=== PATIENT | male | born 1975 | race Two or more races ===

== ENCOUNTER → 2020-11-21 11:10 | Emergency (ER) | payer SELFPAY ==
[~2020-11-21] VITALS: Ht 185.4 cm; Wt 113.4 kg
[~2020-11-21 11:10] MED LIST: cefTRIAXone SOD 1,000 MG VL IM ONE
[2020-11-21 14:01] VITALS: BP 118/67
== END | disposition home or self-care (01) ==
LOC: ER 11:10
DX: J18.9 Pneumonia, unspecified organism (principal); Z20.828 Contact with and (suspected) exposure to other viral communicable diseases
CPT/HCPCS: 36415; 71045; 87426; 96372; 99284; J0696

== ENCOUNTER 2023-04-22 07:49 | Inpatient (IN) | payer MEDICAID, OTHER ==
[~2023-04-22] VITALS: Ht 185.4 cm; Wt 130.0 kg
[2023-04-22] MEDS ORDERED: KETOROLAC TROMETH 30 MG/ML 1ML VIAL IV ONE (08:45)
[2023-04-22] MEDS ORDERED: CEFTRIAXONE SODIUM 2 GM in D5W 5% 100 ML IV ONE (08:45)
[2023-04-22] MEDS ORDERED: CLINDAMYCIN 600MG IV 50 ML IV ONE (08:45)
[2023-04-22 09:48] LABS: Basophils # (auto) 0.1 10 ^3/uL (0-0.2); Basophils % (auto) 0.6 % (0.0-2.0); Eosinophils # (auto) 0.2 10 ^3/uL (0-0.8); Eosinophils % (auto) 1.3 % (0.0-7.0); Hematocrit 37.7 % (41.0-53.0); Hemoglobin 12.7 g/dL (13.5-17.5); Lymphocytes # (auto) 1.5 10 ^3/uL (0.4-5.4); Lymphocytes % (auto) 11.9 % (10.0-50.0); Mean Corpuscular Hemoglobin 28.2 pg (28.0-32.0); Mean Corpuscular Hgb Conc. 33.5 g/dL (32.0-36.0); Mean Corpuscular Volume 84.2 fL (80.0-100.0); Monocytes # (auto) 1.2 10 ^3/uL (0-1.3); Monocytes % (auto) 9.4 % (0.0-12.0); Neutrophils # (auto) 9.6 10 ^3/uL (1.6-8.6); Neutrophils % (auto) 76.8 % (37.0-80.0); Red Blood Cells 4.48 10^6/uL (4.5-5.90); Red Cell Distribution Width 14.1 % (11.8-14.3); White Blood Cell 12.4 10^3/uL (4.4-10.8)
[2023-04-22 09:57] LABS: Urine Bacteria NONE SEEN /hpf (None Seen); Urine Blood 2+ /uL (Negative); Urine Mucus FEW (None Seen); Urine Specific Gravity 1.024 (1.001-1.035); Urine WBC 1 /hpf (0 - 3)
[2023-04-22 10:19] LABS: Albumin 3.1 g/dL (3.4-5.0); Calcium 8.1 mg/dL (8.5-10.1); Potassium 3.9 mmol/L (3.5-5.1)
[2023-04-22 10:23] LABS: Alcohol, Urine < 3.0 mg/dL (0-10); Amphetamine Screen, Urine POSITIVE (NEGATIVE); Barbiturate Scree,Urine NEGATIVE (NEGATIVE); Benzodiazephine Screen, Urine NEGATIVE (NEGATIVE); Cannabinoid Screen, Urine NEGATIVE (NEGATIVE); Cocaine Screen, Urine NEGATIVE (NEGATIVE)
[2023-04-22 10:23] LABS: BUN/Creatinine Ratio 11.8 (10.0-20.0); Bilirubin, Total 1.2 mg/dL (0.2-1.0); Total Protein 6.5 g/dL (6.4-8.2)
[2023-04-22] MEDS ORDERED: ONDANSETRON HCL 4 MG/2 ML VIAL IV ONE (10:30)
[2023-04-22] MEDS ORDERED: MORPHINE SULFATE 4 MG/ML SYR/VIAL IV ONE ×2 (10:30→12:15)
[2023-04-22 10:42] LABS: Opiate Scree,Urine NEGATIVE (NEGATIVE); Phencyclidine Screen, Urine NEGATIVE (NEGATIVE)
[2023-04-22] MEDS: CLINDAMYCIN 300MG IV 50 ML IV SCH ×2 (10:44→10:56)
[2023-04-22] MEDS: SODIUM CHLORIDE 0.9% 1,000 ML IV SCH ×2 (14:29→22:19)
[2023-04-22] MEDS: metroNIDAZOLE 500MG/100ML 100 ML IV SCH ×2 (14:39→22:14)
[2023-04-22 14:55] LABS: INR 1.03 (0.9-1.15)
[2023-04-22] MEDS: MORPHINE SULFATE 4 MG/ML SYR/VIAL IV PRN (16:46)
[2023-04-22] MEDS: ACETAMINOPHEN 325 MG TAB PO PRN (20:43)
[2023-04-22] MEDS: ONDANSETRON HCL 4 MG/2 ML VIAL IV PRN (20:44)
[2023-04-23 06:33] LABS: Basophils # (auto) 0.1 10 ^3/uL (0-0.2); Basophils % (auto) 0.4 % (0.0-2.0); Eosinophils # (auto) 0.2 10 ^3/uL (0-0.8); Eosinophils % (auto) 1.7 % (0.0-7.0); Hematocrit 35.8 % (41.0-53.0); Hemoglobin 12.3 g/dL (13.5-17.5); Lymphocytes # (auto) 1.2 10 ^3/uL (0.4-5.4); Lymphocytes % (auto) 9.7 % (10.0-50.0); Mean Corpuscular Hemoglobin 29.1 pg (28.0-32.0); Mean Corpuscular Hgb Conc. 34.4 g/dL (32.0-36.0); Mean Corpuscular Volume 84.5 fL (80.0-100.0); Monocytes # (auto) 1.3 10 ^3/uL (0-1.3); Monocytes % (auto) 10.5 % (0.0-12.0); Neutrophils # (auto) 9.9 10 ^3/uL (1.6-8.6); Neutrophils % (auto) 77.7 % (37.0-80.0); Red Blood Cells 4.24 10^6/uL (4.5-5.90); White Blood Cell 12.7 10^3/uL (4.4-10.8)
[2023-04-23] MEDS: SODIUM CHLORIDE 0.9% 1,000 ML IV SCH ×3 (06:39→23:00)
[2023-04-23] MEDS: metroNIDAZOLE 500MG/100ML 100 ML IV SCH ×3 (06:39→22:04)
[2023-04-23 06:45] LABS: Calcium 7.9 mg/dL (8.5-10.1); Potassium 4.3 mmol/L (3.5-5.1)
[2023-04-23 06:52] LABS: Albumin 2.7 g/dL (3.4-5.0); BUN/Creatinine Ratio 8.9 (10.0-20.0); Bilirubin, Total 0.9 mg/dL (0.2-1.0); Total Protein 6.6 g/dL (6.4-8.2)
[2023-04-23] MEDS: cefTRIAXone 1GM/50ML D5W 50 ML IV SCH (09:00)
[2023-04-23] MEDS ORDERED: OXYCODONE W/ ACETAMINOPHEN 5/325MG TABLET PO ONE (09:45)
[2023-04-23] MEDS: ONDANSETRON HCL 4 MG/2 ML VIAL IV PRN ×3 (14:22→23:04)
[2023-04-23] MEDS: MORPHINE SULFATE 4 MG/ML SYR/VIAL IV PRN ×3 (14:22→22:57)
[2023-04-23 22:00] VITALS: BP 130/69
[2023-04-23] MEDS: ACETAMINOPHEN 325 MG TAB PO PRN (23:03)
[2023-04-24 05:00] VITALS: BP 113/50
[2023-04-24] MEDS: metroNIDAZOLE 500MG/100ML 100 ML IV SCH (05:23)
[2023-04-24] MEDS: SODIUM CHLORIDE 0.9% 1,000 ML IV SCH ×3 (05:23→23:50)
[2023-04-24 07:55] VITALS: BP 111/48
[2023-04-24] MEDS ORDERED: FAMOTIDINE (10MG/ML) 2ML VL IV ONE (07:58)
[2023-04-24] MEDS ORDERED: ONDANSETRON HCL 4 MG/2 ML VIAL ONE (07:59)
[2023-04-24] MEDS ORDERED: HYDROmorphone HCL 2 MG/ML VL/or syr ONE (07:59)
[2023-04-24] MEDS ORDERED: MIDAZOLAM HCL 2MG/2ML 2ml VIAL (1mg/ml) ONE (08:00)
[2023-04-24] MEDS ORDERED: DexAMETHasone SOD PHOS 10MG/1ML VIAL INJ ONE (08:00)
[2023-04-24] MEDS ORDERED: PROPOFOL 10 MG/ML 20 ML IV ONE (08:00)
[2023-04-24] MEDS ORDERED: fentaNYL CITRATE 100 MCG/2 ML VL ONE (08:00)
[2023-04-24] MEDS ORDERED: LIDOCAINE 2% (LOCAL ANESTH.) PF 5ml SDV ONE (08:00)
[2023-04-24] MEDS ORDERED: KETOROLAC TROMETH 30 MG/ML 1ML VIAL ONE (08:00)
[2023-04-24] MEDS ORDERED: GLYCOPYRROLATE 0.2 MG/ML 1ML VIAL ONE (08:00)
[2023-04-24] MEDS: cefTRIAXone 1GM/50ML D5W 50 ML IV SCH (08:13)
[2023-04-24 08:21] LABS: INR 1.08 (0.9-1.15); Partial Thromboplastin Time 29.5 sec (24.6-33.4)
[2023-04-24] MEDS ORDERED: ePHEDrine SULFATE 50 MG/ML AMP ONE (08:42)
[2023-04-24] MEDS ORDERED: ceFAZolin 1GM VL ONE (08:46)
[2023-04-24] MEDS ORDERED: HYDROmorphone HCL 2 MG/ML VL/or syr IV PRN (09:30)
[2023-04-24] MEDS ORDERED: ONDANSETRON HCL 4 MG/2 ML VIAL IV PRN (09:30)
[2023-04-24] MEDS ORDERED: VANCOMYCIN PER PHARMACY 0 MG IV SCH (10:00)
[2023-04-24] MEDS ORDERED: VANCOMYCIN 1GM/250ML 250 ML IV ONE (10:15)
[2023-04-24 12:00] VITALS: BP 105/52
[2023-04-24 16:00] VITALS: BP 109/60
[2023-04-24] MEDS: VANCOMYCIN 1GM/250ML 250 ML IV SCH (20:39)
[2023-04-24 22:00] VITALS: BP 119/63
[2023-04-24] MEDS: PIPERACILLIN-TAZOB 3.375GM 100 ML IV SCH (22:08)
[2023-04-25] MEDS: VANCOMYCIN 1GM/250ML 250 ML IV SCH ×3 (04:08→20:00)
[2023-04-25 05:00] VITALS: BP 123/54
[2023-04-25] MEDS: PIPERACILLIN-TAZOB 3.375GM 100 ML IV SCH ×3 (05:26→23:16)
[2023-04-25 06:05] LABS: BUN/Creatinine Ratio 24.1 (10.0-20.0); Calcium 8.3 mg/dL (8.5-10.1); Potassium 3.9 mmol/L (3.5-5.1)
[2023-04-25 07:55] VITALS: BP 135/64
[2023-04-25] MEDS: SODIUM CHLORIDE 0.9% 1,000 ML IV SCH ×2 (08:49→16:30)
[2023-04-25 10:43] LABS: Basophils # (auto) 0.2 10 ^3/uL (0-0.2); Basophils % (auto) 0.8 % (0.0-2.0); Eosinophils # (auto) 0 10 ^3/uL (0-0.8); Eosinophils % (auto) 0.1 % (0.0-7.0); Hematocrit 36.8 % (41.0-53.0); Hemoglobin 12.2 g/dL (13.5-17.5); Lymphocytes # (auto) 1.1 10 ^3/uL (0.4-5.4); Lymphocytes % (auto) 5.3 % (10.0-50.0); Mean Corpuscular Hemoglobin 27.9 pg (28.0-32.0); Mean Corpuscular Hgb Conc. 33.2 g/dL (32.0-36.0); Mean Corpuscular Volume 84.1 fL (80.0-100.0); Monocytes # (auto) 1.1 10 ^3/uL (0-1.3); Monocytes % (auto) 5.2 % (0.0-12.0); Neutrophils # (auto) 19.1 10 ^3/uL (1.6-8.6); Neutrophils % (auto) 88.6 % (37.0-80.0); Red Blood Cells 4.37 10^6/uL (4.5-5.90); Red Cell Distribution Width 14.1 % (11.8-14.3); White Blood Cell 21.6 10^3/uL (4.4-10.8)
[2023-04-25 11:55] VITALS: BP 117/64
[2023-04-25 16:00] VITALS: BP 123/62
[2023-04-25] MEDS: MORPHINE SULFATE 4 MG/ML SYR/VIAL IV PRN (19:46)
[2023-04-25] MEDS: ONDANSETRON HCL 4 MG/2 ML VIAL IV PRN (19:51)
[2023-04-25 20:00] VITALS: BP 123/62
[2023-04-25 22:00] VITALS: BP 123/67
[2023-04-25] MEDS ORDERED: TEMAZEPAM 15 MG CAP PO ONE (23:15)
[2023-04-26] MEDS: SODIUM CHLORIDE 0.9% 1,000 ML IV SCH ×3 (00:06→17:30)
[2023-04-26 05:00] VITALS: BP 126/63
[2023-04-26 05:43] LABS: Basophils # (auto) 0.1 10 ^3/uL (0-0.2); Basophils % (auto) 0.6 % (0.0-2.0); Eosinophils # (auto) 0.3 10 ^3/uL (0-0.8); Eosinophils % (auto) 1.8 % (0.0-7.0); Hematocrit 33.5 % (41.0-53.0); Hemoglobin 11.3 g/dL (13.5-17.5); Lymphocytes # (auto) 2.9 10 ^3/uL (0.4-5.4); Lymphocytes % (auto) 19.9 % (10.0-50.0); Mean Corpuscular Hemoglobin 28.5 pg (28.0-32.0); Mean Corpuscular Hgb Conc. 33.8 g/dL (32.0-36.0); Mean Corpuscular Volume 84.4 fL (80.0-100.0); Monocytes # (auto) 0.8 10 ^3/uL (0-1.3); Monocytes % (auto) 5.5 % (0.0-12.0); Neutrophils # (auto) 10.5 10 ^3/uL (1.6-8.6); Neutrophils % (auto) 72.2 % (37.0-80.0); Nucleated Red Blood Cells % 0.1 %; Red Blood Cells 3.98 10^6/uL (4.5-5.90); White Blood Cell 14.5 10^3/uL (4.4-10.8)
[2023-04-26] MEDS: VANCOMYCIN 1GM/250ML 250 ML IV SCH ×2 (05:44→12:26)
[2023-04-26] MEDS: PIPERACILLIN-TAZOB 3.375GM 100 ML IV SCH (06:53)
[2023-04-26 09:00] VITALS: BP 106/50
[2023-04-26 13:00] VITALS: BP 119/63
[2023-04-26 16:24] VITALS: BP 133/62
[2023-04-26] MEDS: MORPHINE SULFATE 4 MG/ML SYR/VIAL IV PRN (19:56)
[2023-04-26 20:00] VITALS: BP 118/57
[2023-04-26] MEDS: metroNIDAZOLE 500 MG TAB PO SCH (22:21)
[2023-04-27 00:12] VITALS: BP 118/57
[2023-04-27] MEDS: SODIUM CHLORIDE 0.9% 1,000 ML IV SCH ×2 (02:01→09:46)
[2023-04-27 05:12] VITALS: BP 114/65
[2023-04-27] MEDS: metroNIDAZOLE 500 MG TAB PO SCH (05:46)
[2023-04-27 09:03] VITALS: BP 126/70
[2023-04-27] MEDS ORDERED: CEFTRIAXONE SODIUM 2 GM in D5W 5% 100 ML IV SCH (10:00)
[2023-04-27 12:20] VITALS: BP 137/77
== END 2023-04-27 13:30 | disposition left against medical advice (07) | DRG 710 ==
LOC: ER 07:49 → OVERFLOW 13:25 → WEST WING 04-23 13:16
PROVIDERS: ADMIT Nurse Practitioner Family; ATTEND Internal Medicine
PROC: 0J9B0ZZ Drainage of Perineum Subcutaneous Tissue and Fascia, Open Approach (ICD-10-PCS; principal; 2023-04-24 08:29)
DX: A41.9 Sepsis, unspecified organism (principal); E44.1 Mild protein-calorie malnutrition; L02.31 Cutaneous abscess of buttock; K61.2 Anorectal abscess; K61.39 Other ischiorectal abscess; F15.10 Other stimulant abuse, uncomplicated; L03.317 Cellulitis of buttock; E88.09 Other disorders of plasma-protein metabolism, not elsewhere classified; Z53.29 Procedure and treatment not carried out because of patient's decision for other reasons; Z85.038 Personal history of other malignant neoplasm of large intestine; Z83.3 Family history of diabetes mellitus; Z68.37 Body mass index [BMI] 37.0-37.9, adult
CPT/HCPCS: 36415; 71045; 72192; 80048; 80053; 80202; 80307; 81001; 82565; 83036; 83605; 85025; 85610; 85730; 86850; 86900; 86901; 87040; 87075; 87076; 87077; 87186; 87205; 93005; 96365; 96375; G0378; J0690; J0696; J1100; J1885; J2001; J2250; J2405; J2543; J2704; J3490; J7042; J7060

== ENCOUNTER 2024-07-06 04:27 | Emergency (ER) | payer MEDICAID ==
[~2024-07-06] VITALS: Ht 185.4 cm; Wt 118.5 kg
[2024-07-06 05:57] VITALS: BP 174/90; PULSE 69; RESP 25; TEMP 98.1; O2SAT 97
[2024-07-06] MEDS ORDERED: SULF400T11 PO (06:44)
[2024-07-06] MEDS ORDERED: CEPH250C PO (06:44)
[2024-07-06] MEDS ORDERED: POLY335015 PO (06:44)
[2024-07-06] MEDS ORDERED: PERCOT PO (06:44)
== END 2024-07-06 07:14 | disposition home or self-care (01) ==
LOC: ER 04:27
DX: L02.31 Cutaneous abscess of buttock (principal); Z85.9 Personal history of malignant neoplasm, unspecified; Z79.899 Other long term (current) drug therapy
CPT/HCPCS: 10060

== ENCOUNTER 2025-09-08 21:35 | Emergency (ER) | payer MEDICAID ==
[~2025-09-08] VITALS: Ht 185.4 cm; Wt 116.9 kg
[~2025-09-08 21:35] MED LIST changes: +CEPH250C PO; +PERCOT PO; +POLY335015 PO; +SULF400T11 PO; -cefTRIAXone SOD 1,000 MG VL IM ONE
[2025-09-08 21:41] VITALS: BP 163/97; PULSE 66; RESP 20; TEMP 98.1; O2SAT 98
[2025-09-08 23:00] LABS: COVID19 ANTIGEN SOFIA FIA NEGATIVE (NEGATIVE)
== END 2025-09-08 23:55 | disposition left against medical advice (07) ==
LOC: ER 21:35
DX: R68.89 Other general symptoms and signs (principal); Z53.21 Procedure and treatment not carried out due to patient leaving prior to being seen by health care provider; Z79.899 Other long term (current) drug therapy; Z20.822 Contact with and (suspected) exposure to COVID-19
CPT/HCPCS: 36415; 87426; 87804